=== PATIENT | male | born 1995 | race Caucasian/White ===

== ENCOUNTER 2017-09-23 15:52 | Emergency (ER) | payer OTHER ==
[2017-09-23] MEDS ORDERED: Lidocaine 1% 20 ML MDV ONE (15:59)
[2017-09-23] MEDS ORDERED: Adacel (T-DAP) 0.5 ML VIAL ONE (16:16)
[2017-09-23] MEDS ORDERED: Bacitracin Zinc 1 Packet ONE (16:21)
== END 2017-09-23 16:30 | disposition home or self-care (01) ==
LOC: SCSER 15:52
DX: S61.211A Laceration without foreign body of left index finger without damage to nail, initial encounter (principal); F41.9 Anxiety disorder, unspecified; Z79.899 Other long term (current) drug therapy; W26.9XXA Contact with unspecified sharp object(s), initial encounter
CPT/HCPCS: 12001; 90471; 90715; J2001